=== PATIENT | male | born 1960 | race Caucasian/White ===

== ENCOUNTER 2017-04-03 13:38 | Emergency (ER) | payer SELFPAY ==
[~2017-04-03] VITALS: Ht 172.7 cm; Wt 91.5 kg
[~2017-04-03 13:38] MED LIST: ASPI-621 PO; ATOR10TA PO; CARV12.52 PO; CLOP75TA52 PO; DOCU100C33 PO; ENAL2.5T PO; FURO-93 PO; GABA-827 PO; HYDR-3241 PO; HYDR-3245 PO; ISOS30TA21 PO; LOSA25TA5 PO; POTA10TA5 PO; RANI300T PO
[2017-04-03 14:00] VITALS: BP 130/86
[2017-04-03] MEDS ORDERED: KETOROLAC 30 MG/1 ML ONE (16:21)
[2017-04-03] MEDS ORDERED: HYDROcodone/APAP 5/325 TABLET ONE (16:21)
[2017-04-03] MEDS ORDERED: HYDROcodone/APAP 5/325 TABLET PO ONE (16:30)
[2017-04-03] MEDS ORDERED: KETOROLAC 30 MG/1 ML IM ONE (16:30)
[2017-04-03] MEDS ORDERED: LIDOCAINE 1%, 10ML ONE (17:08)
[2017-04-03 18:11] LABS: SYN DILUTIN 1; SYN WBC SQ COUNTED 1
== END 2017-04-03 17:34 | disposition home or self-care (01) ==
LOC: ED 17:28
DX: M25.462 Effusion, left knee (principal); I10 Essential (primary) hypertension; M25.562 Pain in left knee; Z87.891 Personal history of nicotine dependence
CPT/HCPCS: 20610; 73564; 82945; 83615; 84157; 84560; 85810; 87070; 87205; 89050; 89060; 96372; 99285; J1885